=== PATIENT | male | born 1950 | race Caucasian/White ===

== ENCOUNTER → 2016-10-21 | Outpatient (CLI) | payer MEDICARE, OTHER ==
[~2016-10-21] MED LIST: ALLOPURINOL100 MG PO; ASPIRIN 81MG TA81 MG PO; BP PILL; LISINOPRIL 5MG T5 MG NG; LISINOPRIL HCTZ1 TAB PO; LISINOPRIL/HCTZ1 TA3 PO; LOPRESSOR 25MG.25 MG PO; METOPROLOL SUCC25 M1 PO; TOPROL XL 25MG25 MG PO; ZOFRAN ODT4 MG PO
--- NOTE | 2016-10-21 16:48 | RADIOLOGY REPORT PS360 ---
CT ABD PELVIS W/ CONTRAST CLINICAL INDICATION: Right-sided abdominal pain RT SIDE ABD PAIN, HX CHOLECYSTECTOMY ORDERING PHYSICIAN: Leeanna Ahn MD PATIENT AGE: 66 years COMPARISON: To 316 TECHNIQUE: Axial images obtained with sagittal and coronal reformats. PROCEDURE: Oral Contrast: Redicat IV Contrast: 75 mL Isovue-370 . FINDINGS: Scattered small calcified and noncalcified nodular densities are present in the lung bases consistent with granulomas. There is a lobular area of decreased attenuation involving the right hepatic lobe posteriorly and laterally at 16 mm subcapsular in nature. Liver otherwise has an unremarkable appearance. Spleen, adrenal glands, and pancreas are unremarkable. The adrenal glands are unremarkable. No renal mass or hydronephrosis or obstructing renal or ureteral calculus evident. There is thickening of the duodenal bulb region with mild haziness of the fat around this area suspicious for underlying inflammation or even neoplasm. Upper endoscopy suggested. No evidence of free air or abscess. A few small lymph nodes are present in this region of the duodenal bulb measuring up to 2 x 1.2 cm. No evidence of appendicitis or diverticulitis. No pelvic mass or abnormal fluid collection. There are degenerative changes in the lumbar spine. IMPRESSION: 1. Mild thickening of the duodenal bulb with haziness surrounding this region. This may be related to underlying inflammation/duodenitis. One cannot exclude neoplasm and upper endoscopy is recommended. There are a few small lymph nodes in this area. 2. There is an indeterminate lesion of the right hepatic lobe somewhat ill-defined measuring approximately 16 mm. Differential includes hemangioma versus neoplastic process such as metastatic disease. Consider follow-up exam with hemangioma protocol for further evaluation..
== END ==
LOC: RAD 10-20 09:00
DX: R10.11 Right upper quadrant pain (principal)
CPT/HCPCS: Q9967

== ENCOUNTER 2017-02-05 08:29 | Day surgery (SDC) | payer MEDICARE, OTHER ==
[~2017-02-05] VITALS: Ht 170.2 cm; Wt 94.8 kg
[~2017-02-05 08:29] MED LIST changes: +OMEPRAZOLE20 MG PO; +[UNRECOGNIZED DRUG - OTHER] PO
--- NOTE | 2017-02-05 12:11 | Anesthesia Record ---
Anesthesia Record Part I Total IV fluids: 900 EBL (ml): 10 Urine Output: 0 Units of blood given: 0 B/P: 126/66 % SaO2: 95 Pulse: 72 Resps: 12 Temp: 96.9 Patient is: Awake, Nasal O2, Stable Stable to PACU at: 1205 at 1211
--- NOTE | 2017-02-05 12:12 | Anesthesia Record ---
Anesthesia Record Part II Discharge time: 1235 Destination: Same day surgery PACU nurse assessment review? Yes Patient is: Awake, Stable Anesthesia complications? No at 1212
--- NOTE | 2017-02-05 12:19 | RADIOLOGY REPORT PS360 ---
FOOT-RT-2 VIEWS HISTORY: RT FIRST METATARSAL ARTHRODESIS ORDERING PHYSICIAN: VALDEMAR OLEARY DPM PATIENT AGE: 66 years COMPARISON: 11/17/2016 FINDINGS: 4 images are obtained with the C-arm during arthrodesis of the first metatarsophalangeal joint. A bone plate was placed with good alignment of the metatarsal phalangeal joint. IMPRESSION: Status post arthrodesis first metatarsophalangeal joint
--- NOTE | 2017-02-05 12:37 | Operative Note-Podiatry ---
Procedure/Operative Record Procedure DATE OF PROCEDURE 02/05/17 PREOPERATIVE DIAGNOSIS 1. Right first MPJ ganglion cyst 2. Right hallux rigidus POSTOPERATIVE DIAGNOSIS Same as Preop Dx PROCEDURE PERFORMED 1. Excision of right first MPJ ganglion cyst 2. Right first MPJ arthrodesis SURGEON Valdemar Meek DPM [employer]MENT SAL[employer]GER(S) Yaritza Kaminski ANESTHESIA General 20 cc 0.5 % Marcaine plain EBL (ml) 15 OPERATIVE NOTE/DISCHARGE/PLAN Indication for Procedure: Mr. Powers is a 66 y/o male who presents with pain to the right great toe joint. He had a left 1st MPJ fusion over 15 years ago. He complains of pain and stiffness to right 1st MPJ with activity, walking. He also complains of soft tissue mass becoming more prominent and hurting when he wear shoes. Radiographs of the right foot show severe arthritis, joint destruction dorsal, medial, lateral osteophytes and spurring. The patient has tried modification of shoe gear, taping, strapping, inserts, ice, elevation, injections, and NSAIDs. After a long discussion with the patient in regards to the conservative vs. surgical treatment for the arthritis deformity, the patient has elected to proceed with surgery because they have failed conservative treatment and continue to have pain and worsening symptoms affecting daily activities. The patient has been instructed on the planned procedure, all the risks vs. benefits of the procedure to include bleeding, infection, nerve and blood vessel damage, need for further surgery, recurrence of soft tissue mass, delay in healing of soft tissue or bone , failure of the bones to heel, non-union, mal-union, prolonged pain and recovery, residual deformity, prolonged swelling, CRPS/RSD, dvt, and anesthetic complications. Vitamin D levels low, patient has started supplement. No guarantees were given. All questions fully answered. The patient verbalized understanding and agreed to proceed with surgery. Consent was obtained. On this date and time patient was deemed an appropriate surgical candidate. With informed consent signed, the patient was taken to the operating theater. The patient was positioned supine. General anesthesia was induced. Tourniquet was applied to the right mid-calf. Right Excision of Ganglion Cyst (First MPJ): The right lower extremity was prepped and draped in normal sterile fashion. Attention was directed to the 1st metatarsophalangeal joint (MPJ), where a dorsal linear incision was mapped out extending proximal from the HIPJ to proximal on the met shaft. The tourniquet was inflated at 225 mmHg. Dissection was carried thru skin and subcutaneous tissue with care taken to maintain surgical hemostasis and safely retract neurovascular structures. A soft tissue mass was noted overlying the first MPJ. Utilizing a mixture of sharp and blunt dissection the ganglion cyst was removed and sent to pathology as a specimen. Right First Metatarsal Phalangeal Joint Arthrodesis: Dissection was then carried through deep fascia linearly over the 1st MPJ, exposing the met head. There was severe arthritic changes noted with wearing down of the cartilage on both the metatarsal head and proximal phalanx. And there was a large joint osteophyte noted which was removed. Severe dorsal as well as medial lateral spurring noted. Sesamoids were also noted to be arthritic. Soft tissue surrounding the first MPJ was released. A McGlamry elevator was used to pass underneath the metatarsal heads releasing more of the contracture. Utilizing hand instrumentation in the form of rongour, the osteophytes were removed and some of the spurs were resected. Next utilizing reamers the base of the proximal phalanx and the metatarsal head were prepared. The remaining portion of the cartilage was removed. The subchondral plate was broken and then utilizing 0.062 K wire the joint was fenestrated down to the level of good healthy cancellous bleeding bone. Power round bur was used to smooth the joint and remaining spurring. The wound was flushed with copious amounts of saline. Bone putty was then inserted into the joint. At this point, the joint was reduced and temporary fixation inserted. Position was checked under intra-op fluoroscopy. [facility] Cross Check plate with interfrag screw was inserted in standard technique. 2 times 2.7 millimeter screws were inserted distally into the proximal phalanx. This was followed by a 3.5mm intra-fragmentary compression screw followed by 2 x 3.5mm screws into the metatarsal. Good apposition and position was noted. X- ray confirmed position and hardware stable. The wound was flushed. Attention was directed distally to the HIPJ, where ronguer and power odilia was used to remove the dorsal spurring. Wound was once again flushed with copious amounts of saline. The remaining portion of the bone graft was packed around the fusion site. 3-0 Vicryl was used to close deep tissue in a running fashion. 15 blade was used to resect the redundant tissue dorsal medial with a ganglion cyst had been. 4-0 Monocryl was used to close subq layer in an interrupted fashion. Viaflow was inserted into the incision. Then the skin was closed with 4-0 Nylon in an interrupted mattress fashion. The tourniquet was deflated after 97 mins and immediate hyperemic response was noted to the digits. The wounds were cleansed. Xeroform, dry sterile dressing was then applied. The patient was awoken from anesthesia and transferred to recovery with vital signs stable and neurovascular status intact. Specimen: Right first MPJ ganglion cyst Materials: eNovance/Cross Check plate and 3.5mm and 2.7mm locking screws x 2 each eNovance 3.5mm partially threaded compression screw x 1 Viaflow, Ignite Discharge/Plan: D/C home today when ready and vital signs stable. Patient is to maintain dressing clean dry and intact. Ice top or right foot and elevate on two pillows. Non weight bearing to the right lower extremity with forefoot offloading post op shoe. Patient has the walker. Rx for Holland 7.5 #28, Zofran, Motrin given. Start vitamin D supplement. Obtain post op films, right foot, 3 views. Follow up with me in 1 week. at 1236
--- NOTE | 2017-02-05 13:29 | RADIOLOGY REPORT PS360 ---
FOOT-RT-3 VIEWS HISTORY: Follow-up arthrodesis POSTOP XRAYS. 3 VIEWS RIGHT FOOT. PT IN PACU ORDERING PHYSICIAN: VALDEMAR OLEARY DPM PATIENT AGE: 66 years COMPARISON: None FINDINGS: There is been interval placement of a dorsal bone plate at the first metatarsophalangeal junction with good alignment of the MTP. Postsurgical gas is noted. No obvious postsurgical complications. There has been trimming of the diffuse bony spurs. Postsurgical gas is present IMPRESSION: Status post arthrodesis of the first MTP as described above
[2017-02-05 15:09] VITALS: BP 126/78
[2017-02-11] MEDS ORDERED: NORCO1 TAB (09:09)
[2017-02-11] MEDS ORDERED: IBU800 MG (09:09)
== END 2017-02-05 13:30 | disposition home or self-care (01) ==
LOC: SDC 08:29
PROVIDERS: Podiatrist
PROC: 0SGM04Z Fusion of Right Metatarsal-Phalangeal Joint with Internal Fixation Device, Open Approach (ICD-10-PCS; 2017-02-05)
PROC: 0S5 Lower Joints, Destruction (ICD-10-PCS; principal; 2017-02-05 10:00)
DX: M20.21 Hallux rigidus, right foot (principal); M67.471 Ganglion, right ankle and foot; M71.371 Other bursal cyst, right ankle and foot
CPT/HCPCS: C1713; C1762; C1776; J2405